=== PATIENT | female | born 1935 | race Caucasian/White ===

== ENCOUNTER 2019-04-14 10:59 | Inpatient (IN) ==
[2019-04-14] MEDS: *HR* Enoxaparin 30 MG/0.3 ML SYRINGE SQ SCH (20:58)
[2019-04-15] MEDS: *HR* OxyCODONE Immed Rel 5 MG TABLET PO PRN ×3 (03:40→23:12)
--- NOTE | 2019-04-15 07:23 | Internal Med History&Physical ---
Date of Encounter: 04/15/19 Time of Encounter: 07:21 Assessment and Plan (1) Status post total hip replacement, right Current visit: Yes Status: Acute Status post right hip replacement for osteoarthritis. She has been able to be ambulatory with her walker in the hallway at [place], she has been to and from the bathroom with assistance. She will start therapy today. Typically using Tylenol for pain, I encouraged her to use oxycodone prior to therapy. Her incision looks good. She has appropriate pain currently. She is using her abductor pillow. We talked about risks of pneumonia, DVT, constipation etc. We talked about how to use her incentive spirometer. We talked about skin protection, avoiding heel ulcers etc. (2) Acute blood loss anemia Current visit: Yes Status: Acute She has appropriate amount of blood loss postoperatively. She received 1 unit of blood yesterday. We are following her hemoglobin. No obvious brisk bleeding. Follow-up hemoglobin for tomorrow. She does have a history of peptic ulcer in the past, had recent endoscopy revealed total healing. (3) HTN (hypertension) Current visit: Yes Status: Chronic She has a chronic history of hypertension. Her blood pressure been mildly elevated. We will follow at this time. No change in her current medication regimen presently Qualifiers: Hypertension type: unspecified Qualified Code(s): I10 - Essential (primary) hypertension (4) History of peptic ulcer Current visit: Yes Status: Chronic History of previous peptic ulcer which was silent. Her follow-up scope showed healing. She is on PPI. No change in her stools. No abdominal pain. (5) DVT prophylaxis Current visit: Yes Status: Acute She is using Lovenox for DVT prophylaxis. We will watch this closely as she does have a history of peptic ulcer in the past and postop anemia. Internal Medicine - H&P: HPI Chief complaint: I am here for therapy after hip replacement Admitted From: Hospital to Hospital Transfer Plans for Post Hospital Care: Home History of present illness: Ms. Green is a 84 year old female with known history of chronic hypertension, recent gastric ulcer and anemia, history of severe right hip osteoarthritis was transferred to our unit having had right hip replacement by Dr. Stroud on 04/11/19. She states the surgery went well. She is surprised how little pain she has compared to her previous osteoarthritis of the right hip. She is basically only been taking Tylenol 3 times per day for pain control. She had some loose bowel movements and so her Colace has been held. She HE does not have constipation. She denies any cardiac, respiratory, symptoms. She has been able to be ambulating in the hallway with the use of a walker while at [place]. She had recent finding of anemia and was found to have gastric ulcer. She is placed on PPI and follow-up EGD showed the ulcer to be healed. She was then able to undergo the surgery for her hip. She denies any abdominal pain, melena, hematochezia, nausea etc. She does have dark stools from her iron. She was transferred to our unit for physical therapy prior to returning to home. 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 Resolved ulcer on follow-up EGD.), hypertension (Long-standing hypertension. Difficult to maintain level blood pressures at home.), other Additional medical history: Hypertension. Right Hip Arthritis. Diverticula of Colon. Carpal Tunnel Syndrome. Cataracts B/L. Anemia. Gastric Ulcer Psychiatric history: no psych history - Past Surgical History Surgical History: orthopedic, other (Now status post right hip replacement by Dr. Stroud 04/11/19), other Additional surgical history: CTS Release Bilateral. Thyroidectomy. Colonoscopy. EGD - Social History Smoking Status: Former smoker Smokeless Tobacco Status: No Alcohol use: none Drug use: none Current living situation: Home - Independent (Her is home) Activity Level: Uses cane/walker (Has been using a walker because of arthritis, now uses a walker because of her recent surgery now.) Recent Out of Country Travel Within the Last 8 Weeks: No Exposure or Possible Exposure to Illness During Travel: No Additional social history: She had her live in a home in town. She is a total of 5 steps to get into the home. Everything then is on the first floor. She states she does not need grab bars for the shower or toilet. - Family History Mother Living Status: Age at : 89 Hx Family Cardiac Disorders: Yes (HTN) Father Living Status: Age at : 86 Hx Family Cancer: Yes (Prostate cancer) Hx Family Musculoskeletal Disorders: Yes (Osteoarthritis) Internal Medicine - H&P: Meds Ascorbate Calcium [Vitamin C] 500 mg PO DAILY 04/11/19 [History] Atorvastatin [Lipitor] 40 mg PO QPM 04/11/19 [History] Biotin 1 mg PO DAILY 04/11/19 [History] Calcium Carbonate/Vitamin D3 [Calcium 500-Vit D3 200 Caplet] 1 tab PO BID [History] Ferrous Sulfate 325 mg PO BID 04/11/19 [History] Gluc Quiroz/Chondro Quiroz A/Vit C/Mn [Glucosamine Chondroitin Tab] 3 tab PO DAILY 04/11/19 [History] Lisinopril [Zestril] 10 mg PO BID 04/11/19 [History] Multivitamin [Daily Multiple Vitamin] 1 tab PO DAILY 04/11/19 [History] Pantoprazole Sodium [Protonix] 40 mg PO QPM 04/11/19 [History] Vit A/C/E AC/Znox/Cupric Oxide [Eye Vitamin-Minerals Tablet] 1 tab PO DAILY 04/11/19 [History] Vitamin B Complex [B Complex] 1 tab PO DAILY 04/11/19 [History] hydroCHLOROthiazide [Hydrochlorothiazide] 12.5 mg PO QAM 04/11/19 [History] Docusate Sodium [Colace] 100 mg PO BID 5 Days #10 capsule 04/14/19 [Rx] Enoxaparin [Lovenox] 30 mg SQ DAILY 14 Days #14 syringe 04/14/19 [Rx] OxyCODONE Immed Rel [Roxicodone 5 MG] 5 mg PO Q6HR PRN 5 Days #20 tablet [Rx] Allergy/AdvReac Type Severity Reaction Status Date / Time meloxicam [From [facility]] Allergy Hives Verified 04/11/19 10:22 pecan nut Allergy Anaphylaxis Verified 04/11/19 10:22 walnut Allergy Anaphylaxis Verified 04/11/19 10:22 - Constitutional Constitutional: no fever(s), no falls - EENT Eyes: no change in vision Ears: no decreased hearing Nose, mouth and throat: no sore throat - Cardiovascular Cardiovascular ROS IM: no chest pain, no diaphoresis, no dyspnea, no dyspnea on exertion, no irregular heart rhythm, no lightheadedness - Respiratory Respiratory: no cough, no dyspnea, no dyspnea on exertion - Gastrointestinal Gastrointestinal: no constipation, no diarrhea, no nausea Additional comments: Her stools are chronically dark because of her iron. No change in that. - Genitourinary Genitourinary: no dysuria - Musculoskeletal Additional comments: Her right hip pain is under reasonable control. Ordinarily she uses Tylenol. In the middle of the night she requested a Percocet. She has been able to ambulate to and from the bathroom. - Integumentary Integumentary IM: no new lesions, no rash - Neurological Neurological ROS: no focal weakness - Psychiatric Psychiatric: no depression - Constitutional Vitals: Temp Pulse Resp BP Pulse Ox 97.9 F 66 16 167/64 97 04/15/19 03:55 04/15/19 03:55 04/15/19 03:55 04/15/19 03:55 04/15/19 03:55 General appearance: Present: A&O X 3, no acute distress - Eye Eye exam: Present: EOMI, PERRL - ENT Additional comments: Right ear canal partially obscured with cerumen. Left is normal - Neck Neck exam general surgery: Absent: tenderness, nuchal rigidity, thyromegaly - Respiratory Respiratory exam: Present: CTAB - Cardiovascular Cardiovascular exam: Present: RRR, +S1, +S2 - GI/Abdominal GI/Abdominal exam: Present: soft. Absent: mass, tenderness - Extremities Exam Extremities exam: Absent: calf tenderness, cyanotic, pedal edema Additional comments: Heels are normal. Right lateral thigh shows honeycomb dressing with clear overlay intact. No drainage. No significant bruising. No signs of infection. - Incison Comments: Dressing is clean and dry. Intact. No bleeding, redness, bruising. She has appropriate tenderness. - Neurological Exam Neurological exam: Present: CN II-XII intact, no focal deficits - Skin Skin exam: Absent: cyanosis, rash Internal Med - H&P Results - Labs CBC & Chem 7: 04/16/19 06:18 Labs: Short CBC 04/15/19 Range/Units 04:50 Hgb 8.9 L (11.5-15.4) g/dL Hemoglobin reviewed. Slightly worse than after her blood transfusion. Better than before blood transfusion.
[2019-04-15] MEDS: *HR* Enoxaparin 30 MG/0.3 ML SYRINGE SQ SCH (09:29)
[2019-04-15] MEDS: Vitamin B Complex/Vit C/Vit E 1 EACH TABLET PO SCH (09:30)
[2019-04-15] MEDS: Cholecalciferol (D-3) 1,000 UNIT (25MCG) TABLET PO SCH (09:30)
[2019-04-15] MEDS: Multivit/Ca/Min/Fe/FA 1 TAB TABLET PO SCH (09:30)
[2019-04-15] MEDS: Ascorbic Acid 500 MG TABLET PO SCH (09:30)
[2019-04-15] MEDS: hydroCHLOROthiazide 25 MG TABLET PO SCH (09:30)
[2019-04-15] MEDS: (Biotin 1 MG) PO SCH (09:32)
[2019-04-15] MEDS: (Vit A/C/E Ac/Znox/Cupric Oxide [Eye Vitamin-Minerals) PO SCH (09:33)
[2019-04-15] MEDS: CHONDRO SU A PO SCH (09:33)
[2019-04-15] MEDS: [UNRECOGNIZED DRUG - OTHER] PO SCH (09:33)
[2019-04-15] MEDS: VIT C PO SCH (09:33)
[2019-04-15] MEDS: GLUC SU PO SCH (09:33)
[2019-04-16] MEDS: *HR* OxyCODONE Immed Rel 5 MG TABLET PO PRN (06:18)
[2019-04-16] MEDS: (Vit A/C/E Ac/Znox/Cupric Oxide [Eye Vitamin-Minerals) PO SCH (08:28)
[2019-04-16] MEDS: VIT C PO SCH (08:28)
[2019-04-16] MEDS: CHONDRO SU A PO SCH (08:28)
[2019-04-16] MEDS: [UNRECOGNIZED DRUG - OTHER] PO SCH (08:28)
[2019-04-16] MEDS: GLUC SU PO SCH (08:28)
[2019-04-16] MEDS: (Biotin 1 MG) PO SCH (08:28)
[2019-04-16] MEDS: Vitamin B Complex/Vit C/Vit E 1 EACH TABLET PO SCH (08:43)
[2019-04-16] MEDS: Ascorbic Acid 500 MG TABLET PO SCH (08:43)
[2019-04-16] MEDS: hydroCHLOROthiazide 25 MG TABLET PO SCH (08:43)
[2019-04-16] MEDS: Cholecalciferol (D-3) 1,000 UNIT (25MCG) TABLET PO SCH (08:43)
[2019-04-16] MEDS: Multivit/Ca/Min/Fe/FA 1 TAB TABLET PO SCH (08:43)
[2019-04-16] MEDS: *HR* Enoxaparin 30 MG/0.3 ML SYRINGE SQ SCH (10:08)
--- NOTE | 2019-04-16 16:15 | Internal Med Progress Note ---
Date of Encounter: 04/16/19 Time of Encounter: 16:13 - Assessment and plan (1) Status post total hip replacement, right Current Visit: Yes Status: Acute Assessment and plan: She seems to be advancing nicely. Pain is under good control. She has appropriate mild amount of swelling in her right foot without signs of DVT. She is on DVT prophylaxis with frequent ambulation as well as Lovenox. Likely this is because this is the surgery site for her hip. (2) Acute blood loss anemia Current Visit: Yes Status: Acute Assessment and plan: Her hemoglobin is going back up and is 9.1. I do not think we need to recheck. (3) HTN (hypertension) Current Visit: Yes Status: Chronic Assessment and plan: Her blood pressure remains somewhat elevated. She denies any cardiac or MOTOR BU[employer]DER [employer]SEM[employer] symptoms. At home she is a history of blood pressure being very labile. With her history of anemia, recent surgery, etc. I am going to avoid overtreating and were going to follow the blood pressure for now. I am more concerned about orthostatic hypotension occurring at this time. Qualifiers: Hypertension type: unspecified Qualified Code(s): I10 - Essential (primary) hypertension (4) History of peptic ulcer Current Visit: Yes Status: Chronic Assessment and plan: no abdominal pain. No melena or hematochezia. (5) Swelling of right lower extremity Current Visit: Yes Status: Acute Assessment and plan: Mild edema of the right foot. No signs of DVT. No tenderness. No trauma. This is likely related to her hip surgery on the same side. Expectations discussed. We will follow. (6) DVT prophylaxis Current Visit: Yes Status: Acute Assessment and plan: Continues with Lovenox. - Subjective Interval history: Patient thinks that she is doing much better. She said that she was able to ambulate outside on different surfaces, did the ramp in the front, and she has been allowed to be independent getting in and out of bed. She denies a cardiac or respiratory symptoms. No abdominal pain. Her Tylenol 3 times a day and occasional oxycodone has been helpful for the pain. She thinks she will has one or 2 in a day. Her only complaint is that she has swelling in the right foot. It is not painful. No redness. No trauma. - Constitutional Vitals: Temp Pulse Resp BP Pulse Ox 98.3 F 101 18 164/69 95 04/16/19 07:00 04/16/19 15:00 04/16/19 07:00 04/16/19 15:00 04/16/19 07:00 General appearance: Present: A&O X 3, no acute distress - Respiratory Respiratory exam: Present: CTAB - Cardiovascular Cardiovascular exam: Present: RRR, +S1, +S2 - GI/Abdominal GI/Abdominal exam: Present: soft. Absent: tenderness - Extremities Exam Extremities exam: Absent: calf tenderness, joint swelling, mottling, tenderness Additional comments: Negative Homans sign. She does have mild puffiness of the dorsum of the foot. There is no bruising. No Tenderness. No linear streaks. It is not red or hot or tender. - Incison Comments: The incision in the right lateral thigh is doing well. The 2 honeycomb dressings with clear overlay are doing well. No bruising, bleeding, signs of infection or redness. Appropriately tender. Internal Medicine: Result - Labs CBC & Chem 7: 04/16/19 06:18 Labs: Short CBC 04/16/19 Range/Units 06:18 Hgb 9.1 L (11.5-15.4) g/dL Hemoglobin is going back up now and is at 9.1. Consult Discharge Plan - Plan Referrals: Дмитрий Pineda MD [Primary Care Provider] -
[2019-04-17] MEDS: (Biotin 1 MG) PO SCH (08:46)
[2019-04-17] MEDS: CHONDRO SU A PO SCH (08:46)
[2019-04-17] MEDS: [UNRECOGNIZED DRUG - OTHER] PO SCH (08:46)
[2019-04-17] MEDS: VIT C PO SCH (08:46)
[2019-04-17] MEDS: GLUC SU PO SCH (08:46)
[2019-04-17] MEDS: (Vit A/C/E Ac/Znox/Cupric Oxide [Eye Vitamin-Minerals) PO SCH (08:46)
[2019-04-17] MEDS: hydroCHLOROthiazide 25 MG TABLET PO SCH (09:01)
[2019-04-17] MEDS: Multivit/Ca/Min/Fe/FA 1 TAB TABLET PO SCH (09:02)
[2019-04-17] MEDS: *HR* Enoxaparin 30 MG/0.3 ML SYRINGE SQ SCH (09:02)
[2019-04-17] MEDS: Cholecalciferol (D-3) 1,000 UNIT (25MCG) TABLET PO SCH (09:02)
[2019-04-17] MEDS: Vitamin B Complex/Vit C/Vit E 1 EACH TABLET PO SCH (09:02)
[2019-04-17] MEDS: Ascorbic Acid 500 MG TABLET PO SCH (09:02)
--- NOTE | 2019-04-17 15:32 | Internal Med Progress Note ---
Date of Encounter: 04/17/19 Time of Encounter: 15:30 - Assessment and plan (1) Status post total hip replacement, right Current Visit: Yes Status: Acute Assessment and plan: Seems to be doing well with her therapies and independence with ambulation with her walker. Minimal pain medication needed. Continue with her therapies. Continue incentive spirometer. The swelling in the right lower extremity is likely from the hip surgery. No concern for DVT at this point (2) Acute blood loss anemia Current Visit: Yes Status: Acute Assessment and plan: Her blood count went up yesterday. I do not have plans to repeat it unless she becomes symptomatic. (3) HTN (hypertension) Current Visit: Yes Status: Chronic Assessment and plan: Mildly elevated blood pressure despite her usual medications. We will continue watching for now. She has a tendency to get hypotensive at home. She is asymptomatic and we will monitor Qualifiers: Hypertension type: unspecified Qualified Code(s): I10 - Essential (primary) hypertension (4) History of peptic ulcer Current Visit: Yes Status: Chronic Assessment and plan: No GI symptoms. No blood per rectum. Abdomen exam normal (5) DVT prophylaxis Current Visit: Yes Status: Acute - Subjective Interval history: Patient thinks that she is doing well. Because it is Thursday and there is no formal therapy she has gotten out of bed, walked to the therapy room and has done some mat exercises. She denies any chest pain, palpitation, dyspnea, GI or symptoms. Her bowels moved today. She has not been requiring much if any opiate analgesia, only once in the past 24 hours. She continues with her acetaminophen every 8 hours. Per she still has swelling of the right lower extremity. It is not particularly painful for her. No fevers or chills or redness. Nurses report that she is doing well. Vitals have been stable except for mildly elevated blood pressure. - Constitutional Vitals: Temp Pulse Resp BP Pulse Ox 98.2 F 75 16 161/58 96 04/17/19 07:59 04/17/19 07:59 04/17/19 07:59 04/17/19 07:59 04/17/19 07:59 General appearance: Present: A&O X 3, no acute distress, answers questions appropriately - Respiratory Respiratory exam: Present: CTAB - Cardiovascular Cardiovascular exam: Present: RRR, +S1, +S2, systolic murmur (One over 6 systolic murmur) - GI/Abdominal GI/Abdominal exam: Present: soft. Absent: tenderness - Extremities Exam Additional comments: Mild pitting edema of the right foot and ankle. No redness. No tenderness. Negative Homans sign. No calf tenderness. No linear streaks. Right hip incision is doing well as below. - Incison Comments: Incision was evaluated. The honeycomb dressing and clear overlay is present over both incisions and doing well. Scant amount of dried blood in the proximal lower incision. Does have about palm sized bruising posterior and inferior to the lower incision in the dependent area. No significant tenderness. Internal Medicine: Result - Labs CBC & Chem 7: 04/16/19 06:18 Consult Discharge Plan - Plan Referrals: Дмитрий Pineda MD [Primary Care Provider] -
[2019-04-18] MEDS: hydroCHLOROthiazide 25 MG TABLET PO SCH (08:05)
[2019-04-18] MEDS: Ascorbic Acid 500 MG TABLET PO SCH (08:05)
[2019-04-18] MEDS: [UNRECOGNIZED DRUG - OTHER] PO SCH (08:06)
[2019-04-18] MEDS: Multivit/Ca/Min/Fe/FA 1 TAB TABLET PO SCH (08:06)
[2019-04-18] MEDS: *HR* Enoxaparin 30 MG/0.3 ML SYRINGE SQ SCH (08:06)
[2019-04-18] MEDS: CHONDRO SU A PO SCH (08:06)
[2019-04-18] MEDS: GLUC SU PO SCH (08:06)
[2019-04-18] MEDS: (Vit A/C/E Ac/Znox/Cupric Oxide [Eye Vitamin-Minerals) PO SCH (08:06)
[2019-04-18] MEDS: Vitamin B Complex/Vit C/Vit E 1 EACH TABLET PO SCH (08:06)
[2019-04-18] MEDS: VIT C PO SCH (08:06)
[2019-04-18] MEDS: (Biotin 1 MG) PO SCH (08:11)
[2019-04-18] MEDS: Cholecalciferol (D-3) 1,000 UNIT (25MCG) TABLET PO SCH (11:18)
--- NOTE | 2019-04-18 14:11 | Internal Med Progress Note ---
Date of Encounter: 04/18/19 Time of Encounter: 14:09 - Assessment and plan (1) Status post total hip replacement, right Current Visit: Yes Status: Acute Assessment and plan: She is advancing nicely with her therapies. She will resume therapy after the holiday. She uses Tylenol for pain and only rare oxycodone use. (2) Acute blood loss anemia Current Visit: Yes Status: Acute Assessment and plan: We will recheck her count tomorrow. (3) HTN (hypertension) Current Visit: Yes Status: Chronic Assessment and plan: Mildly elevated blood pressure, not unusual for her at home. No symptoms. Continue to monitor. Qualifiers: Hypertension type: unspecified Qualified Code(s): I10 - Essential (primary) hypertension (4) History of peptic ulcer Current Visit: Yes Status: Chronic Assessment and plan: No GI symptoms. No blood in her stools. Recheck hemoglobin tomorrow. (5) DVT prophylaxis Current Visit: Yes Status: Acute Assessment and plan: Continues with Lovenox for DVT prophylaxis. Plan will be for 14 days. She does have swelling in the right foot and ankle, I think this is secondary to her hip surgery and not a DVT. - Subjective Interval history: Patient denies any cardiac or respiratory symptoms. She states today is a "lazy day" and she has not walked much other than in her room. She walked in the hallways yesterday. She has not needed any extra pain medication. She continues to have swelling in the right lower extremity but there is no pain. She continues with her Lovenox. - Constitutional Vitals: Temp Pulse Resp BP Pulse Ox 97.8 F 80 15 163/54 96 04/18/19 08:33 04/18/19 08:33 04/18/19 08:33 04/18/19 08:33 04/18/19 08:33 General appearance: Present: A&O X 3, no acute distress, answers questions appropriately - Respiratory Respiratory exam: Present: CTAB - Cardiovascular Cardiovascular exam: Present: RRR, +S1, +S2. Absent: systolic murmur - Extremities Exam Additional comments: Right ankle and foot are swollen but nontender. Negative Homans sign. No calf tenderness. No linear streaks. There is no redness. This is the side where she had her hip surgery on Internal Medicine: Result - Labs CBC & Chem 7: 04/16/19 06:18 Consult Discharge Plan - Plan Referrals: Дмитрий Pineda MD [Primary Care Provider] -
--- NOTE | 2019-04-19 07:27 | Internal Med Progress Note ---
Date of Encounter: 04/19/19 Time of Encounter: 07:27 - Assessment and plan (1) Status post total hip replacement, right Status: Acute Assessment and plan: Doing well with her therapies anticipate she will go home soon. Pain is under good control. Incision looks great. (2) Acute blood loss anemia Status: Acute Assessment and plan: Hemoglobin has stabilized. It do not think she needs further evaluation. Continue iron. (3) HTN (hypertension) Status: Chronic Assessment and plan: Blood pressure mildly elevated. No symptoms. Continue to monitor. Qualifiers: Hypertension type: unspecified Qualified Code(s): I10 - Essential (primary) hypertension (4) History of peptic ulcer Status: Chronic Assessment and plan: No GI symptoms. No bowel pain. No change of bowel habits. (5) DVT prophylaxis Status: Acute Assessment and plan: Continues with her Lovenox. - Subjective Interval history: I saw patient earlier this morning she was having any acute symptoms. She denies a chest pain or palpitations. She is eager to be able to go home. No issues with pain control. - Constitutional Vitals: Temp Pulse Resp BP Pulse Ox 98.4 F 85 14 129/64 96 04/18/19 19:15 04/18/19 19:15 04/18/19 19:15 04/18/19 19:15 04/18/19 19:15 General appearance: Present: A&O X 3, no acute distress, answers questions appropriately - Respiratory Respiratory exam: Present: CTAB - Cardiovascular Cardiovascular exam: Present: RRR, +S1, +S2, systolic murmur (1/6 systolic murmur) - Extremities Exam Additional comments: Her incision looks great. Dressing intact and clean and dry. No bruising noted. Minimal edema in the right dorsal foot. Negative calf tenderness negative Homans sign Internal Medicine: Result - Labs CBC & Chem 7: 04/19/19 06:45 Labs: Hemoglobin is stable. Consult Discharge Plan - Plan Instructions: Oxycodone, Rapid Release (By mouth), Enoxaparin (Injection), Total Hip Replacement (GEN) Referrals: Gaby Murray PAC [Physician Exhauster] - 04/21/19 8:45 am (follow up again on April 29, 2019 at 8:30am) Pierre Stroud MD [Partnered Physician] - 05/11/19 5:45 pm Дмитрий Pineda MD [Primary Care Provider] - (Does not need a follow-up soon as I have seen her every day in the hospital. She should follow up with the surgeon until released by them.) Prescriptions: Enoxaparin [Lovenox] 30 mg SQ DAILY 9 Days #9 syringe
[2019-04-19 07:39] VITALS: BP 163/64
[2019-04-19] MEDS: Multivit/Ca/Min/Fe/FA 1 TAB TABLET PO SCH (08:44)
[2019-04-19] MEDS: Cholecalciferol (D-3) 1,000 UNIT (25MCG) TABLET PO SCH (08:44)
[2019-04-19] MEDS: hydroCHLOROthiazide 25 MG TABLET PO SCH (08:44)
[2019-04-19] MEDS: Vitamin B Complex/Vit C/Vit E 1 EACH TABLET PO SCH (08:44)
[2019-04-19] MEDS: Ascorbic Acid 500 MG TABLET PO SCH (08:45)
[2019-04-19] MEDS: VIT C PO SCH (09:16)
[2019-04-19] MEDS: GLUC SU PO SCH (09:16)
[2019-04-19] MEDS: *HR* Enoxaparin 30 MG/0.3 ML SYRINGE SQ SCH (09:16)
[2019-04-19] MEDS: (Biotin 1 MG) PO SCH (09:16)
[2019-04-19] MEDS: [UNRECOGNIZED DRUG - OTHER] PO SCH (09:16)
[2019-04-19] MEDS: CHONDRO SU A PO SCH (09:16)
[2019-04-19] MEDS: (Vit A/C/E Ac/Znox/Cupric Oxide [Eye Vitamin-Minerals) PO SCH (09:17)
--- NOTE | 2019-04-19 11:30 | Discharge Summary ---
- NOTES TO OUTPATIENT PROVIDER Notes to Outpatient Provider: #1. Follow-up at the orthopedic clinic as planned later this week. #2. Outpatient physical therapy to be arranged. #3. Prescription for 9 more days of Lovenox has been sent to the pharmacy Date of Encounter: 04/19/19 Time of Encounter: 11:28 - Discharge Diagnosis (1) Status post total hip replacement, right Priority: Primary Status: Acute Comments: Patient had under gone right hip replacement for severe osteoarthritic by Dr. Stroud. She came to our rehabilitation unit and has done extremely well. She is used only rare dosing of oxycodone. Tylenol every 8 hours seems to hold her well. Her incision is healing nicely. Dressing is intact with minimal dried blood. No redness or bruising. She is getting around very well and therapy thinks it is safe to send her home today. She will continue therapy as an outpatient. (2) Acute blood loss anemia Priority: Secondary Status: Acute Comments: She 1 unit of blood when still in [place]. Here her count has been improved and stable. She did not require any further intervention. (3) HTN (hypertension) Priority: Secondary Status: Chronic Comments: Blood pressure has been mildly elevated. We maintained her current medication with the addition of hydrochlorothiazide which she had not used at home in a while. We will recheck an outpatient. Should no symptoms with this. Qualifiers: Hypertension type: unspecified Qualified Code(s): I10 - Essential (primary) hypertension (4) History of peptic ulcer Priority: Secondary Status: Chronic Comments: Previous history of peptic ulcer disease and scope showed healing. She has had no recurrence of any symptoms. No blood per rectum. Hemoglobin is stable postoperatively. (5) DVT prophylaxis Priority: Secondary Status: Acute Comments: She continues with 14 days total of Lovenox. Hospital course: Ms. Green is a 84 year old female who came to a rehabilitation center with right hip replacement for severe osteoarthritis. She has done extremely well. She needed only rare dose of oxycodone. Tylenol every 8 hours is holding her well. She is up and ambulatory. Therapy stating that she is safe to go home. Please see the diagnoses above. Discharge discussed with: patient, family - Time Spent with Patient Total time spent providing and/or coordinating discharge services: - Discharge Medications Prescriptions: New Acetaminophen [Tylenol] 1,000 mg PO Q8HR tablet Continued Pantoprazole Sodium [Protonix] 40 mg PO QPM Multivitamin [Daily Multiple Vitamin] 1 tab PO DAILY Calcium Carbonate/Vitamin D3 [Calcium 500-Vit D3 200 Caplet] 1 tab PO BID Lisinopril [Zestril] 10 mg PO BID hydroCHLOROthiazide [Hydrochlorothiazide] 12.5 mg PO QAM Gluc Quiroz/Chondro Quiroz A/Vit C/Mn [Glucosamine Chondroitin Tab] 3 tab PO DAILY Vit A/C/E AC/Znox/Cupric Oxide [Eye Vitamin-Minerals Tablet] 1 tab PO DAILY Ferrous Sulfate 325 mg PO BID Vitamin B Complex [B Complex] 1 tab PO DAILY Biotin 1 mg PO DAILY Atorvastatin [Lipitor] 40 mg PO QPM Ascorbate Calcium [Vitamin C] 500 mg PO DAILY OxyCODONE Immed Rel [Roxicodone 5 MG] 5 mg PO Q6HR PRN 5 Days #20 tablet PRN Reason: Severe Pain Enoxaparin [Lovenox] 30 mg SQ DAILY 9 Days #9 syringe Discontinued Docusate Sodium [Colace] 100 mg PO BID 5 Days #10 capsule Home Medications: Ascorbate Calcium [Vitamin C] 500 mg PO DAILY 04/11/19 [History] Atorvastatin [Lipitor] 40 mg PO QPM 04/11/19 [History] Biotin 1 mg PO DAILY 04/11/19 [History] Calcium Carbonate/Vitamin D3 [Calcium 500-Vit D3 200 Caplet] 1 tab PO BID 04/11/19 [History] Ferrous Sulfate 325 mg PO BID 04/11/19 [History] Gluc Quiroz/Chondro Quiroz A/Vit C/Mn [Glucosamine Chondroitin Tab] 3 tab PO DAILY 04/11/19 [History] Lisinopril [Zestril] 10 mg PO BID 04/11/19 [History] Multivitamin [Daily Multiple Vitamin] 1 tab PO DAILY 04/11/19 [History] Pantoprazole Sodium [Protonix] 40 mg PO QPM 04/11/19 [History] Vit A/C/E AC/Znox/Cupric Oxide [Eye Vitamin-Minerals Tablet] 1 tab PO DAILY 04/11/19 [History] Vitamin B Complex [B Complex] 1 tab PO DAILY 04/11/19 [History] hydroCHLOROthiazide [Hydrochlorothiazide] 12.5 mg PO QAM 04/11/19 [History] OxyCODONE Immed Rel [Roxicodone 5 MG] 5 mg PO Q6HR PRN 5 Days #20 tablet 04/14/19 [Rx] Acetaminophen [Tylenol] 1,000 mg PO Q8HR tablet 04/19/19 [Rx] Enoxaparin [Lovenox] 30 mg SQ DAILY 9 Days #9 syringe 04/19/19 [Rx] Allergies/Adverse Reactions: Allergy/AdvReac Type Severity Reaction Status Date / Time meloxicam [From Mob] Allergy Hives Verified 04/11/19 10:22 pecan nut Allergy Anaphylaxis Verified 04/11/19 10:22 walnut Allergy Anaphylaxis Verified 04/11/19 10:22 Date of admission: 04/14/19 16:36 Primary care physician: Дмитрий Pineda MD Consults: 04/14/19 18:56 Consult to Occupational Therapy [CONS] Routine Comment: Evaluate, develop and implement POC Reason for Consult: s/p right total hip Does patient have active BEDREST order?: No Is patient medically & hemodynamically stable?: Yes Patient assessed for mobility or mobilized this visit?: No Consult to Physical Therapy [CONS] Routine Comment: Evaluate, develop and implement POC Reason for Consult: s/p right total hip Does patient have active BEDREST order?: No Is patient medically & hemodynamically stable?: Yes Patient assessed for mobility or mobilized this visit?: No Consult to Recreational Therapy [CONS] Routine Comment: Evaluate, develop and implement POC Consult to Convex Grinder [CONS] Routine Reason for SW Consult: d/c planning Discharging clinician: Дмитрий Pineda Anticipated date of discharge: 04/19/19 - Constitutional Vitals: Temp Pulse Resp BP Pulse Ox 98 F 77 15 163/64 96 04/19/19 07:38 04/19/19 07:38 04/19/19 07:38 04/19/19 07:38 04/19/19 07:38 General appearance: Present: A&O X 3, no acute distress, answers questions appropriately - Respiratory Respiratory exam: Present: CTAB - Cardiovascular Cardiovascular exam: Present: RRR, +S1, +S2, systolic murmur (1/6 systolic murmur) - Extremities Exam Additional comments: Small amount of right dorsal foot edema. No calf tenderness. No linear streaks. Negative Homans sign. - Incison Comments: Honeycomb dressings are intact. Clear overlay is intact. Scant amount of dried blood noted in the lower incision. There bruising or redness. Good pain control. - Patient Status Disposition: Home Health Service Condition: Good Functional capacity at discharge: uses cane/walker Overall status at discharge: patient is progressing back to baseline - Discharge Instructions Instructions: Oxycodone, Rapid Release (By mouth), Enoxaparin (Injection), Total Hip Replacement (GEN) Follow Up With: Gaby Murray PAC [Physician Leather Scraper] - 04/21/19 8:45 am (follow up again on April 29, 2019 at 8:30am) Pierre Stroud MD [Partnered Physician] - 05/11/19 5:45 pm Дмитрий Pineda MD [Primary Care Provider] - (Does not need a follow-up soon as I have seen her every day in the hospital. She should follow up with the surgeon until released by them.) - Diet and Activity Activity: ambulate only with your walker, as per physical therapy, increase activity as tolerated Diet: low salt diet
--- NOTE | 2019-04-19 11:38 | Physician Discharge Referral ---
Home Health/Hosp Referral Info Transfer to: Home Health Provider in Charge Post Discharge: PCP - Diagnosis (1) Status post total hip replacement, right Priority: Primary Status: Acute (2) Acute blood loss anemia Priority: Secondary Status: Acute (3) HTN (hypertension) Priority: Secondary Status: Chronic (4) History of peptic ulcer Priority: Secondary Status: Chronic (5) DVT prophylaxis Priority: Secondary Status: Acute - Respiratory Orders Smoking Cessation: Smoking cessation has been advised. For more information, call the [place] Tobacco Quit Line at 9-925-HOGB-NOW. - Dressing/Wound Care Type of Dressing/Treatments w/Frequency: Per orthopedic orders - Diet/Nutrition Diet/Nutrition Orders: No Added Salt (ADAN) - Activity Activity Orders: Walker - Services Needed Following services are medically necessary services: Nursing, Physical Therapy - Transfer Medications Prescriptions: Enoxaparin [Lovenox] 30 mg SQ DAILY 9 Days #9 syringe Home Medications: Ascorbate Calcium [Vitamin C] 500 mg PO DAILY 04/11/19 [History] Atorvastatin [Lipitor] 40 mg PO QPM 04/11/19 [History] Biotin 1 mg PO DAILY 04/11/19 [History] Calcium Carbonate/Vitamin D3 [Calcium 500-Vit D3 200 Caplet] 1 tab PO BID 04/11/19 [History] Ferrous Sulfate 325 mg PO BID 04/11/19 [History] Gluc Quiroz/Chondro Quiroz A/Vit C/Mn [Glucosamine Chondroitin Tab] 3 tab PO DAILY 04/11/19 [History] Lisinopril [Zestril] 10 mg PO BID 04/11/19 [History] Multivitamin [Daily Multiple Vitamin] 1 tab PO DAILY 04/11/19 [History] Pantoprazole Sodium [Protonix] 40 mg PO QPM 04/11/19 [History] Vit A/C/E AC/Znox/Cupric Oxide [Eye Vitamin-Minerals Tablet] 1 tab PO DAILY 04/11/19 [History] Vitamin B Complex [B Complex] 1 tab PO DAILY 04/11/19 [History] hydroCHLOROthiazide [Hydrochlorothiazide] 12.5 mg PO QAM 04/11/19 [History] OxyCODONE Immed Rel [Roxicodone 5 MG] 5 mg PO Q6HR PRN 5 Days #20 tablet 04/14/19 [Rx] Acetaminophen [Tylenol] 1,000 mg PO Q8HR tablet 04/19/19 [Rx] Enoxaparin [Lovenox] 30 mg SQ DAILY 9 Days #9 syringe 04/19/19 [Rx] Allergies/Adverse Reactions: Allergy/AdvReac Type Severity Reaction Status Date / Time meloxicam [From Mobic] Allergy Hives Verified 04/11/19 10:22 pecan nut Allergy Anaphylaxis Verified 04/11/19 10:22 walnut Allergy Anaphylaxis Verified 04/11/19 10:22 Certification: Further, I certify that my clinical findings support that this patient is homebound (i.e. absences from home require considerable and taxing effort and are for medical reasons or rastafarian services or infrequently or short duration when for other reasons) because: Homebound Reason: Patient requires assistance of a person or device to safely leave home, Post-surgery restriction and or conditions limit ability to leave home, Leaving home requires considerable and taxing effort due to condition Attestation: My signature below is to certify that this patient is under my care and that I, or nurse practitioner, or a physician's dental chairside assistant working with me, has a [id number] encounter with this patient.
== END 2019-04-19 14:10 | disposition home health service (06) | DRG 560 ==
LOC: INPGRE 16:36
PROVIDERS: ADMIT Family Medicine; ATTEND Family Medicine